=== PATIENT | female | born 1990 | race Asian ===

== ENCOUNTER 2020-02-20 07:09 | Inpatient (IN) ==
[2020-02-20] MEDS ORDERED: Lactated Ringers 1000 ml BAG 1,000 ML IV ONE ×2 (08:48→22:34)
[2020-02-20] MEDS ORDERED: Lactated Ringers 1000 ml BAG 1,000 ML IV SCH ×2 (09:00→23:00)
[2020-02-20 09:18] LABS: ABS Basophils 0.1 10^3/ul (0-0.2); ABS Lymphocytes 1.1 10^3/ul (1.0-4.8); ABS Monocytes 0.9 10^3/ul (0-0.8); ABS Neutrophils 6.7 10^3/ul (1.5-7.7); Eosinophil % 0.4 %; Hematocrit 30 % (35-47); Hemoglobin 10.1 g/dL (12.0-16.0); Lymphocyte % 12.1 %; Mean Corpuscular HGB Conc 34 g/dL (31-36); Mean Corpuscular Hemoglobin 30 pg (27-31); Mean Corpuscular Volume 90 fL (80-97); Platelet Count 292 10^3/uL (150-450); Red Blood Count 3.33 10^6 /uL (3.70-4.87); Red Cell Distribution Width 17 % (10-15); White Blood Count 8.8 10^3/uL (3.5-10.8)
[2020-02-20 09:34] LABS: Urine Benzodiazepine Screen None Detected (None Detect); Urine Cannabinoids Screen None Detected (None Detect); Urine Opiates Screen None Detected (None Detect)
[2020-02-20] MEDS ORDERED: Oxytocin in LR 20 UNITS/1,000 ML BAG IVPB ONE (17:55)
[2020-02-20] MEDS ORDERED: OBEPIDURAL 250 ML EPIDURAL ONE (21:15)
[2020-02-20] MEDS ORDERED: Sodium Citrate/Citric Acid LIQ 15 ML UDC PO PRN (22:34)
[2020-02-20] MEDS ORDERED: Phenylephrine 40 mcg/mL 10mL (400mcg) SYRINGE IV PUSH PRN ×2 (22:34)
[2020-02-20] MEDS ORDERED: Lactated Ringers 1000 ml BAG 500 ML IV PRN ×2 (22:34)
[2020-02-20] MEDS ORDERED: OBEPIDURAL 250 ML EPIDURAL SCH (23:00)
[2020-02-21] MEDS ORDERED: Oxytocin in LR 20 UNITS/1,000 ML BAG IVPB SCH ×2 (02:00→09:00)
[2020-02-21] MEDS ORDERED: Witch Hazel PAD JAR ONE (08:30)
[2020-02-21] MEDS ORDERED: Dibucaine 1% OINT 28.35 GM TUBE ONE (08:30)
[2020-02-21] MEDS ORDERED: Glycerin ADULT 2.4 gm SUPP PR PRN (08:37)
[2020-02-21] MEDS ORDERED: Witch Hazel PAD JAR TOPICAL PRN (08:37)
[2020-02-21] MEDS ORDERED: Dibucaine 1% OINT 28.35 GM TUBE PR PRN (08:37)
[2020-02-21] MEDS ORDERED: ceFAZolin 2 GM PREMIX 2 GM/50 ML BAG IVPB ONE (09:00)
[2020-02-21] MEDS ORDERED: Lactated Ringers 1000 ml BAG 1,000 ML IV SCH (09:00)
[2020-02-21 11:19] LABS: ABS Monocytes 1.4 10^3/ul (0-0.8); ABS Neutrophils 13.6 10^3/ul (1.5-7.7); Eosinophil % 0.1 %; Hematocrit 20 % (35-47); Hemoglobin 6.7 g/dL (12.0-16.0); Mean Corpuscular HGB Conc 34 g/dL (31-36); Mean Corpuscular Hemoglobin 30 pg (27-31); Mean Corpuscular Volume 90 fL (80-97); Mean Platelet Volume 7.2 fL (7.4-10.4); Platelet Count 222 10^3/uL (150-450); Red Blood Count 2.22 10^6 /uL (3.70-4.87); Red Cell Distribution Width 17 % (10-15); White Blood Count 16.1 10^3/uL (3.5-10.8)
[2020-02-21 11:27] LABS: INR 1.13 (0.82-1.09)
[2020-02-21 23:12] LABS: ABS Lymphocytes 1.5 10^3/ul (1.0-4.8); ABS Monocytes 1.5 10^3/ul (0-0.8); Eosinophil % 0.3 %; Hematocrit 26 % (35-47); Hemoglobin 8.5 g/dL (12.0-16.0); Lymphocyte % 9.5 %; Mean Corpuscular HGB Conc 33 g/dL (31-36); Mean Corpuscular Hemoglobin 30 pg (27-31); Mean Corpuscular Volume 90 fL (80-97); Mean Platelet Volume 7.4 fL (7.4-10.4); Platelet Count 183 10^3/uL (150-450); Red Blood Count 2.85 10^6 /uL (3.70-4.87); Red Cell Distribution Width 16 % (10-15); White Blood Count 16.1 10^3/uL (3.5-10.8)
[2020-02-22 07:24] LABS: ABS Basophils 0.1 10^3/ul (0-0.2); ABS Eosinophils 0.1 10^3/ul (0-0.6); ABS Lymphocytes 1.5 10^3/ul (1.0-4.8); ABS Monocytes 1.5 10^3/ul (0-0.8); ABS Neutrophils 12.9 10^3/ul (1.5-7.7); Eosinophil % 0.5 %; Hematocrit 23 % (35-47); Hemoglobin 8.2 g/dL (12.0-16.0); Lymphocyte % 9.1 %; Mean Corpuscular HGB Conc 36 g/dL (31-36); Mean Corpuscular Hemoglobin 32 pg (27-31); Mean Corpuscular Volume 90 fL (80-97); Mean Platelet Volume 7.5 fL (7.4-10.4); Platelet Count 178 10^3/uL (150-450); Red Blood Count 2.56 10^6 /uL (3.70-4.87); Red Cell Distribution Width 16 % (10-15); White Blood Count 16.1 10^3/uL (3.5-10.8)
[2020-02-23 08:00] VITALS: BP 105/66
== END 2020-02-23 13:51 | disposition home or self-care (01) | DRG 541 ==
LOC: MCHOBOUT 07:09 → MCHOB 08:53
PROVIDERS: ADMIT Advanced Practice Midwife; ATTEND Advanced Practice Midwife